=== PATIENT | male | born 1935 | race Caucasian/White ===

== ENCOUNTER 2017-02-07 13:29 | Emergency (ER) | payer MEDICARE, OTHER ==
[~2017-02-07] VITALS: Ht 170.2 cm; Wt 85.0 kg
[2017-02-07 13:37] VITALS: Ht 170.2 cm; Wt 85.0 kg
[2017-02-07] MEDS ORDERED: ONDANSETRON 4 MG INJ IV STA (13:53)
[2017-02-07] MEDS ORDERED: SOD CHLORIDE 0.9% 500 ML IV STA (13:53)
[2017-02-07] MEDS ORDERED: CEFTRIAXONE 1 GM/50 ML (PMX) 50 ML IVPB ONE (14:00)
[2017-02-07] MEDS ORDERED: IBUPROFEN 600 MG TAB PO ONE (14:00)
[2017-02-07 14:13] LABS: ADD SCAN DIFF NO
[2017-02-07 14:15] LABS: BASOPHIL # 0.1 10^3/ul (0.0-0.1); BASOPHILS % 0.3 % (0.0-2.0); EOSINOPHILS # 0.1 10^3/ul (0.0-0.5); EOSINOPHILS % 0.4 % (0.0-7.0); HEMATOCRIT 32.5 % (42.0-52.0); HEMOGLOBIN 10.9 g/dl (14.0-18.0); LYMPHOCYTES # 0.8 10^3/ul (0.8-2.9); LYMPHOCYTES % 5.3 % (15.0-51.0); MEAN CORPUSCULAR HEMOGLOBIN 28.5 pg (29.0-33.0); MEAN CORPUSCULAR HGB CONC 33.5 g/dl (32.0-37.0); MEAN CORPUSCULAR VOLUME 85.1 fl (82.0-101.0); MEAN PLATELET VOLUME 10.2 fl (7.4-10.4); MONOCYTE # 0.6 10^3/ul (0.3-0.9); MONOCYTES % 3.5 % (0.0-11.0); NEUTROPHILS % 89.9 % (39.0-77.0); PLATELET COUNT 383 10^3/UL (140-415); RED BLOOD COUNT 3.82 10^6/ul (4.70-6.10); RED CELL DISTRIBUTION WIDTH 15.9 % (11.5-14.5); WHITE BLOOD COUNT 15.6 10^3/ul (4.8-10.8)
[2017-02-07 14:32] LABS: ALBUMIN 4.3 g/dl (3.3-4.9); ALBUMIN/GLOBULIN RATIO 1.19; BILIRUBIN,INDIRECT 0.2 mg/dl (0-1.1); BILIRUBIN,TOTAL 0.2 mg/dl (0.2-1.3); CALCIUM 8.9 mg/dl (8.4-10.2); CREATININE 1.36 mg/dl (0.61-1.24); POTASSIUM 4.1 mmol/L (3.5-5.1); TOTAL PROTEIN 7.9 g/dl (6.1-8.1)
[2017-02-07 14:43] LABS: TROPONIN-I 0.013 ng/ml (0.00-0.12)
[2017-02-07 15:01] LABS: ADD UMIC YES; UR ASCORBIC ACID NEGATIVE (NEGATIVE); UR BACTERIA FEW /HPF (NONE SEEN); UR BILIRUBIN (Dip) NEGATIVE (NEGATIVE); UR BLOOD (Dip) 1+ mg/dL (NEGATIVE); UR CLARITY CLOUDY (CLEAR); UR COLOR AMBER (YELLOW); UR GLUCOSE (Dip) NEGATIVE (NEGATIVE); UR KETONES (Dip) NEGATIVE (NEGATIVE); UR LEUKOCYTE ESTERASE (Dip) 3+ Leu/ul (NEGATIVE); UR NITRITE (Dip) NEGATIVE (NEGATIVE); UR RBC 3 /HPF (0-5); UR SPECIFIC GRAVITY (Dip) 1.017 (1.003-1.030); UR TOTAL PROTEIN (Dip) 2+ mg/dl (NEGATIVE); UR UROBILINOGEN (Dip) NEGATIVE (NEGATIVE); UR WBC CLUMPS MANY /HPF (NONE SEEN)
[2017-02-07] MEDS ORDERED: CEPH-443 PO (15:18)
--- NOTE | 2017-02-07 15:23 | RADRPT ---
PROCEDURE: CHEST 1VW CLINICAL INDICATION: Abdominal pain TECHNIQUE: Single frontal view of the chest was obtained COMPARISON: None. FINDINGS: The cardiac size is normal. Mild atherosclerotic calcifications are demonstrated. There is no pulmonary vascular congestion. Bibasilar atelectasis. The lungs are otherwise clear. No consolidation, effusion, or pneumothorax. Mild degenerative changes of the visualized osseous structures are visualized. IMPRESSION: 1. No acute cardiopulmonary process. Bibasilar atelectasis. 2. Atherosclerosis. RPTAT:PP .Ramses Devine MD, MD Date Time Electronically viewed and signed by .Ramses Devine MD, on 02/07/2017 15:23 .V/
--- NOTE | 2017-02-07 15:23 | ERA ---
ER Documentation Chief Complaint Date/Time DATE: 02/07/17 TIME: 15:18 Chief Complaint flu like symptoms x 3 days HPI 81-year-old man here with complaints of tactile fever and dysuria 2 days. He states is also felt weaker than usual today. He denies URI symptoms, no URI symptoms whatsoever. He denies cough, no congestion, no sore throat, no complaints of chest pain or shortness of breath. Patient denies hematuria. Patient suspects he has urinary tract infection due to a long history of BPH. Patient denies recent travel or recent antibiotic use. ROS All systems reviewed and are negative except as per history of present illness. Medications Home Meds Active Scripts Cephalexin* (Keflex*) 500 Mg Capsule, 500 MG PO QID for 5 Days, CAP Prov:FABIO DELEON MD 02/07/17 Reported Medications Ergocalciferol (Vitamin D2) (VITAMIN D2) 50,000 Unit Capsule, 21369 UNIT PO Q7D , CAP 02/07/17 Albuterol Sulfate* (Ventolin HFA*) 18 Gm Hfa.aer.ad, 2 PUFF INHALATION Q6H, #1 INHALER 02/07/17 Metoprolol Succinate* (Toprol XL*) 50 Mg Tab.er.24h, 50 MG PO DAILY, #30 TAB 02/07/17 Amlodipine Besylate* (Amlodipine Besylate*) 10 Mg Tablet, 10 MG PO DAILY, #30 TAB 02/07/17 Valsartan* (Diovan*) 320 Mg Tablet, 320 MG PO DAILY, TAB 02/07/17 Solifenacin* (Vesicare*) 5 Mg Tablet, 5 MG PO DAILY, TAB 02/07/17 Alfuzosin Hcl* (Alfuzosin Hcl*) 10 Mg Tab.er.24h, 10 MG PO QHS, #30 TAB.SA 02/07/17 Lubiprostone* (Amitiza*) 24 Mcg Capsule, 24 MCG PO BID, #60 CAP 02/07/17 Metformin Hcl* (Metformin Hcl*) 850 Mg Tablet, 850 MG PO WITH BREAKFAST DINNE, # 60 TAB 02/07/17 Pioglitazone Hcl* (Pioglitazone Hcl*) 30 Mg Tablet, 30 MG PO DAILY, TAB 02/07/17 Gabapentin* (Gabapentin*) 300 Mg Capsule, 300 MG PO QHS, #30 CAP 02/07/17 Esomeprazole Mag Trihydrate (Nexium) 40 Mg Capsule.dr, 40 MG PO DAILY, #30 CAP 02/07/17 Clopidogrel Bisulfate* (Clopidogrel Bisulfate*) 75 Mg Tablet, 75 MG PO DAILY, # 30 TAB 02/07/17 Memantine* (Namenda*) 5 Mg Tablet, 5 MG PO BID, #60 TAB 02/07/17 Sitagliptin* (Januvia*) 100 Mg Tablet, 100 MG PO DAILY, #30 TAB 02/07/17 Rosuvastatin Calcium* (Crestor*) 20 Mg Tablet, 20 MG PO DAILY, #30 TAB 02/07/17 Allergies Allergies: Coded Allergies: aspirin (Verified Allergy, Unknown, 02/07/17) orange (Verified Allergy, Unknown, 02/07/17) PMhx/Soc Obesity, hypertension, diabetes mellitus, coronary artery disease status post balloon angioplasty, BPH History of Surgery: No Anesthesia Reaction: No Hx Neurological Disorder: No Hx Respiratory Disorders: No Hx Cardiac Disorders: Yes (htn) Hx Psychiatric Problems: No Hx Miscellaneous Medical Probl: Yes (uti) Hx Alcohol Use: Yes (occassional ) Hx Substance Use: No Hx Tobacco Use: Yes Smoking Status: Former smoker FmHx Family History: No diabetes Physical Exam Vitals Vital Signs Date Time Temp Pulse Resp B/P Pulse Ox O2 Delivery O2 Flow Rate FiO2 02/07/17 15:34 71 24 112/59 93 02/07/17 13:37 99.1 84 24 126/76 93 Physical Exam GENERAL: Well-developed, well-nourished, well-hydrated, in no apparent distress , looks nontoxic in appearance HEENT: Moist mucous membranes, pink conjunctiva, no cervical spine tenderness or step-off deformities, no goiter, no jaundice or icterus, extraocular movements intact without pain. No submandibular induration, and no pharyngeal erythema NEURO: Alert and oriented 3, cranial nerves II through XII intact bilaterally, pupils equal round reactive to light, no focal deficits or facial asymmetry, sensation intact distally Strength 5/5 in upper and lower extremities bilaterally CARDIAC: Regular rate and rhythm, no murmurs rubs or gallops LUNGS: Clear bilaterally no wheezing crackles or stridor ABDOMEN: Soft nontender, no guarding, no rigidity, no rebound, no psoas sign no obturator sign. Normoactive bowel sounds SKIN: Warm and dry to touch, no abrasions, contusions, or hematomas, no lacerations, no ecchymosis, no target lesions, and without ulcers EXTREMITIES: No clubbing cyanosis or edema, calves are bilaterally symmetrical, no Homans sign, no popliteal cord sign. Distal pulses equal and bilateral PSYCH: Normal affect without agitation or irritability Result Diagram: 02/07/17 1405 02/07/17 1405 Results 24 hrs Laboratory Tests Test 02/07/17 14:05 02/07/17 14:30 White Blood Count 15.610^3/ul Red Blood Count 3.8210^6/ul Hemoglobin 10.9g/dl Hematocrit 32.5% Mean Corpuscular Volume 85.1fl Mean Corpuscular Hemoglobin 28.5pg Mean Corpuscular Hemoglobin Concent 33.5g/dl Red Cell Distribution Width 15.9% Platelet Count 85722^3/UL Mean Platelet Volume 10.2fl Neutrophils % 89.9% Lymphocytes % 5.3% Monocytes % 3.5% Eosinophils % 0.4% Basophils % 0.3% Nucleated Red Blood Cells % 0.0/100WBC Neutrophils # 14.010^3/ul Lymphocytes # 0.810^3/ul Monocytes # 0.610^3/ul Eosinophils # 0.110^3/ul Basophils # 0.110^3/ul Nucleated Red Blood Cells # 0.010^3/ul Sodium Level 135mmol/L Potassium Level 4.1mmol/L Chloride Level 100mmol/L Carbon Dioxide Level 22mmol/L Anion Gap 17 Blood Urea Nitrogen 26mg/dl Creatinine 1.36mg/dl Glucose Level 194mg/dl Calcium Level 8.9mg/dl Total Bilirubin 0.2mg/dl Direct Bilirubin 0.00mg/dl Indirect Bilirubin 0.2mg/dl Aspartate Amino Transf (AST/SGOT) 32IU/L Alanine Aminotransferase (ALT/SGPT) 59IU/L Alkaline Phosphatase 131IU/L Troponin I 0.013ng/ml Total Protein 7.9g/dl Albumin 4.3g/dl Globulin 3.60g/dl Albumin/Globulin Ratio 1.19 Lipase 114U/L Urine Color ANA Urine Clarity CLOUDY Urine pH 5.0 Urine Specific [place] 1.017 Urine Ketones NEGATIVEmg/dL Urine Nitrite NEGATIVEmg/dL Urine Bilirubin NEGATIVEmg/dL Urine Urobilinogen NEGATIVEmg/dL Urine Leukocyte Esterase 3+Sarah/ul Urine Microscopic RBC 3/HPF Urine Microscopic WBC 97/HPF Urine Bacteria FEW/HPF Urine Hemoglobin 1+mg/dL Urine Glucose NEGATIVEmg/dL Urine Total Protein 2+mg/dl Current Medications Medications (Trade) Dose Ordered Sig/Damien Route PRN Reason Start Time Stop Time Status Last Admin Dose Admin Sodium Chloride (NS) 500 ml @ 500 mls/hr Q1H STAT IV 02/07/17 13:53 02/07/17 14:52 DC 02/07/17 14:16 Ondansetron HCl 4 mg 4 mg ONCE STAT IV 02/07/17 13:53 02/07/17 13:56 DC 02/07/17 14:24 Ceftriaxone Sodium (Rocephin) 50 ml @ 100 mls/hr ONCE ONCE IVPB 02/07/17 14:00 02/07/17 14:29 DC 02/07/17 14:24 Ibuprofen (Motrin) 600 mg ONCE ONCE PO 02/07/17 14:00 02/07/17 14:01 DC 02/07/17 14:24 Procedures/MDM IV line was established patient was placed on alarm security or surveillance monitor rhythm strip revealed a sinus rhythm at about 70 bpm with upright P and T waves. Patient was afebrile. Urine cultures have been ordered results are pending I will follow-up. EKG performed, read by me revealed a normal sinus rhythm at 75 bpm, left axis deviation, narrow QRS complex, no concerning ST elevations or depressions noted. Chest X-ray 1V Interpreted by me: Soft Tissue: No acute abnormalities Bones: No acute abnormalities Mediastinum/Cardiac Silhouette/Lungs: Atelectatic changes bilaterally, no acute infiltrates CBC revealed a leukocytosis of 16, electrolytes revealed dehydration with a BUN/ creatinine of 26/1.4, liver function tests normal, troponin negative. Urinalysis was consistent with urinary tract infection. I treated the patient here with 1 L normal saline intravenously, Zofran 4 mg IV , ibuprofen 600 mg p.o., and ceftriaxone 1 g IV. Patient's symptoms improved. Differential diagnoses considered, included but not limited to acute coronary syndrome, pulmonary embolism, aortic dissection, abdominal aortic aneurysm, sepsis, stroke, meningitis, encephalitis, pneumonia, appendicitis, cholecystitis , bowel obstruction, pyelonephritis, nephrolithiasis, cystitis, as well as metabolic, hematologic, and electrolyte abnormalities. As well as abscess, cellulitis, fractures, and dislocations. Patient feels much better at this time, and vital signs are normal, symptoms have improved. I did give strict instructions to return to the ED if symptoms continue or worsen, patient will otherwise follow-up with primary care physician. Patient understood instructions and agreed to plan. Disclaimer: Inadvertent spelling and grammatical errors are likely due to EHR/ dictation software use and do not reflect on the overall quality of patient care. Also, please note that the electronic time recorded on this note does not necessarily reflect the actual time of the patient encounter. Departure Diagnosis: Primary Impression: BPH (benign prostatic hyperplasia) Qualified Code: N40.1 - Benign prostatic hyperplasia with lower urinary tract symptoms, unspecified morphology Additional Impression: UTI (urinary tract infection) Qualified Code: N30.00 - Acute cystitis without hematuria Condition: FABIO Todd MD Feb 07, 2017 15:23
[2017-02-07 15:34] VITALS: BP 112/59; PULSE 71; RESP 24
[2017-02-07] MEDS ORDERED: ROSU20TA PO (15:44)
[2017-02-07] MEDS ORDERED: SITA100T8 PO (15:45)
[2017-02-07] MEDS ORDERED: MEMA5TAB PO (15:45)
[2017-02-07] MEDS ORDERED: ESOM40CA PO (15:46)
[2017-02-07] MEDS ORDERED: CLOP75TA4 PO (15:46)
[2017-02-07] MEDS ORDERED: PIOG30TA26 PO (15:47)
[2017-02-07] MEDS ORDERED: GABA300C16 PO (15:47)
[2017-02-07] MEDS ORDERED: METF850T PO (15:48)
[2017-02-07] MEDS ORDERED: LUBI24CA7 PO (15:50)
[2017-02-07] MEDS ORDERED: ALFU10TA2 PO (15:50)
[2017-02-07] MEDS ORDERED: VALS320T11 PO (15:51)
[2017-02-07] MEDS ORDERED: SOLI5TAB5 PO (15:51)
[2017-02-07] MEDS ORDERED: AMLO-147 PO (15:54)
[2017-02-07] MEDS ORDERED: METO50TA16 PO (15:55)
[2017-02-07] MEDS ORDERED: ALBU18HF INHALATION (15:56)
[2017-02-07] MEDS ORDERED: ERGO500037 PO (15:57)
== END 2017-02-07 15:54 | disposition home or self-care (01) ==
LOC: E/R 13:29
DX: N40.1 Benign prostatic hyperplasia with lower urinary tract symptoms (principal); N30.00 Acute cystitis without hematuria; I10 Essential (primary) hypertension; E11.9 Type 2 diabetes mellitus without complications; I25.10 Atherosclerotic heart disease of native coronary artery without angina pectoris; E66.9 Obesity, unspecified; Z68.29 Body mass index [BMI] 29.0-29.9, adult; Z79.01 Long term (current) use of anticoagulants; Z79.84 Long term (current) use of oral hypoglycemic drugs; Z87.891 Personal history of nicotine dependence
CPT/HCPCS: 36415; 71010; 80053; 81001; 83690; 84484; 85025; 87086; 93005; 96374; 96375; 99285; J0696; J2405; J7040; P9612